=== PATIENT | male | born 1965 | race Caucasian/White ===

== ENCOUNTER 2017-10-01 09:05 | Inpatient (IN) | payer OTHER ==
[~2017-10-01] VITALS: Ht 182.9 cm; Wt 101.6 kg
--- NOTE | 2017-10-01 09:53 | ED GI/GU/ABDOMINAL COMPLAINT ---
History of Present Illness General Chief Complaint: Abdominal Pain/Flank Pain Stated Complaint: LT FLANK PAIN Source: patient Exam Limitations: no limitations Vital Signs & Intake/Output Vital Signs & Intake/Output Vital Signs Date Time Temp Pulse Resp B/P B/P Pulse O2 O2 Flow FiO2 Mean Ox Delivery Rate 10/01 1312 97.8 78 18 131/86 97 Room Air 10/01 1009 97.0 96 18 130/79 98 Room Air 10/01 0935 Room Air 10/01 0911 97.2 125 16 155/108 98 Room Air Allergies Coded Allergies: NO KNOWN ALLERGIES (12/21/11) Reconcile Medications No Known Home Medications Triage Note: PT TO ED C/O LT FLANK PAIN SINCE YESTERDAY. WORSE WITH MOVEMENT AND PALPATION. DENIES ANY URINARY S/S. DENIES HX OF KIDNEY STONES. Triage Nurses Notes Reviewed? yes Onset: Abrupt Duration: hour(s):, constant, changing over time, continues in ED, getting worse Timing: single episode today Quality/Severity: sharpness, severe Location: left flank Radiation: no radiation Activities at Onset: rest HPI: Patient presents for evaluation of a severe constant left flank pain that began relatively abruptly Monday night/Monday morning. Patient denies any prior episodes of this nature. He likewise denies associated fever, cold symptoms, hematuria or dysuria. Pain worsens with lifting the left leg. Patient hasn't tried any medications for pain. Past History Travel History Traveled to [place] past 21 day No Medical History Any Pertinent Medical History? see below for history Surgical History Surgical History: non-contributory Psychosocial History What is your primary language [place]ian Tobacco Use: Current Daily Use Daily Tobacco Use Amount/Type: => 5 Cigarettes daily Family History Hx Contributory? No Review of Systems Review of Systems Constitutional: Reports: no symptoms. EENTM: Reports: no symptoms. Respiratory: Reports: no symptoms. Cardiovascular: Reports: no symptoms. GI: Reports: no symptoms. Genitourinary: Reports: no symptoms. Musculoskeletal: Reports: see HPI. Skin: Reports: no symptoms. Neurological/Psychological: Reports: no symptoms. Hematologic/Endocrine: Reports: no symptoms. Immunologic/Allergic: Reports: no symptoms. All Other Systems: Reviewed and Negative Physical Exam Physical Exam Gastrointestinal: see below Comments: Gen.: Well-nourished, well-developed, no acute respiratory distress. Head: Normocephalic, atraumatic. Eyes: Normal inspection bilaterally Ears: Normal inspection bilaterally Nose: Normal inspection Throat/mouth : Moist mucosa Neck: Supple, full range of motion, no goiter Lungs: Quiet respirations Abdomen: Left upper quadrant abdominal tenderness with voluntary guarding but no rebound, normal bowel sounds, no palpable masses Back: Normal range of motion, no CVAT Extremities: Normal range of motion grossly, no cyanosis clubbing or edema of the upper extremities Neurologic: Cranial nerves grossly intact, speech is clear Skin: warm and dry Psychiatric: Calm, cooperative, no apparent delusions or hallucinations Core Measures ACS in differential dx? No Sepsis Present: No Sepsis Focused Exam Completed? No Progress Differential Diagnosis: renal colic, diverticulitis, UTI/pyelo, hernia, gas pain Plan of Care: Orders Procedure Date/time Status LIPASE 10/02 951 Complete COMPREHENSIVE METABOLIC PANEL 10/02 951 Complete CBC WITHOUT DIFFERENTIAL 10/02 951 Complete URINALYSIS 10/01 930 Active Laboratory Tests 10/01/17 0955: Anion Gap 15, Estimated GFR > 60, BUN/Creatinine Ratio 12.2, Glucose 113 H, Calcium 9.8, Total Bilirubin 1.7 H, AST 21, ALT 39, Alkaline Phosphatase 74, Total Protein 8.2, Albumin 4.8, Globulin 3.4, Albumin/Globulin Ratio 1.4, Lipase 233, CBC w Diff MAN DIFF ORDERED, RBC 5.84, MCV 87.4, MCH 29.4, MCHC 33.6, RDW 13.9, MPV 7.3 L, Gran % 75.3 H, Lymphocytes % 14.2 L, Monocytes % 9.5 H, Eosinophils % 0.5, Basophils % 0.5, Absolute Granulocytes 16.1 H, Absolute Lymphocytes 3.0, Absolute Monocytes 2.0 H, Absolute Eosinophils 0.1, Absolute Basophils 0.1, Platelet Estimate VERIFIED BY SMEAR, Normocytic RBCs VERIFIED, Normochromic RBCs VERIFIED Initial ED EKG: none Comments: 10/01/2017 11:06:54 AM I have already updated Arya on his CAT scan results. At that point he was without complaint. I have just discussed his case with Chano Agee MD who will evaluate Arya in the emergency department shortly. 10/01/2017 12:36:57 PM Arya is resting comfortably and offers no complaint at this time. He has received his antibiotics. We are awaiting evaluation by Chano Agee MD. Departure Departure Disposition: STILL A PATIENT Condition: Stable Clinical Impression Primary Impression: Diverticulitis of colon with perforation Qualifiers: Diverticulitis bleeding: without bleeding Qualified Code: K57.20 - Diverticulitis of large intestine with perforation and abscess without bleeding Referrals: Patient Has No Primary Care Dr (PCP/Family) Departure Forms: Customer Survey General Discharge Information Prescriptions: Current Visit Scripts No Known Home Medications Admission Note Spoke With: Cyndie SENA,Chano Ramirez Documentation of Exam: Documentation of any treatments & extenuating circumstances including Concerns Regarding Discharge (functional status, medication knowledge or non-compliance, living conditions, etc.) that warrant an admission rather than observation: Patient presents with severe abdominal pain and emergency Department evaluation reveals perforated diverticulitis. This places this patient at high risk of peritonitis sepsis and mortality. I feel this patient is an extremely poor candidate for outpatient management. The severe abdominal pain and tenderness would prevent him from compliance with outpatient treatment and he would likely return in worse clinical condition. I feel this patient requires an aggressive management with IV antibiotics and close clinical monitoring to prevent worsening of his clinical condition. Serial abdominal examination should be performed and if patient's clinical condition deteriorates, surgical intervention should be considered. Given the seriousness of this patient's medical condition I feel he will require a multiple day hospitalization. Critical Care Note Critical Care Note Critical Care Time: 30-74 min
[2017-10-01 10:11] LABS: ABSOLUTE BASOPHIL COUNT 0.1 /CUMM (0.0-0.2); ABSOLUTE EOSINOPHIL COUNT 0.1 /CUMM (0.0-0.7); ABSOLUTE GRANULOCYTE CT 16.1 /CUMM (1.4-6.5); BASOPHIL % 0.5 % (0.0-2.0); EOSINOPHIL % 0.5 % (0-5); GRANULOCYTE % 75.3 % (42.2-75.2); MEAN CORPUSCULAR HGB 29.4 PG (27.0-31.0); MEAN CORPUSCULAR HGB CONC 33.6 G/DL (33.0-37.0); MEAN CORPUSCULAR VOLUME 87.4 FL (80.0-94.0); MEAN PLATELET VOLUME 7.3 FL (7.4-10.4); PLATELET COUNT 325 /CUMM (130-400); RBC DISTRIBUTION WIDTH 13.9 % (11.5-14.5); RED BLOOD CELL CT 5.84 /CUMM (4.70-6.10); WHITE BLOOD CELL COUNT 21.4 /CUMM (4.8-10.8)
--- NOTE | 2017-10-01 10:27 | CT SCAN REPORT ---
EXAMINATION: CT ABDOMEN AND PELVIS WITHOUT CONTRAST CLINICAL INFORMATION: Left-sided abdominal pain and tenderness. Presumptive diagnosis of left renal colic, diverticulitis. COMPARISON: None. TECHNIQUE: Multidetector volumetric imaging was performed from the superior aspect of the liver through the pubic symphysis. Sagittal and coronal reformatted images were obtained on the technologist workstation. DLP: 612.63 mGy-cm. FINDINGS: LUNG BASES: The visualized lung bases are unremarkable. LIVER, GALLBLADDER, AND BILIARY TREE: The liver is normal in size, shape, and attenuation. There are 6 small subcentimeter sized low-attenuation masses seen in the left lobe of the liver, measuring less than or equal to 0.9 cm in size. These are most consistent with tiny cysts. Right lobe of the liver is unremarkable on noncontrast study. No biliary ductal dilatation is present. The gallbladder is unremarkable with no evidence of radiopaque gallstones, gallbladder wall thickening, or obvious pericholecystic inflammatory changes. PANCREAS: Unremarkable on noncontrast imaging. SPLEEN: There are 2 accessory splenules seen along the anterior inferior margin of the spleen, measuring 0.5 cm (series 2, image 15) and 1.0 cm (series 2, image 18). The spleen itself is unremarkable. ADRENAL GLANDS: Unremarkable on noncontrast imaging. KIDNEYS AND URETERS: The kidneys are normal in size, shape, and attenuation. No hydronephrosis, hydroureter, or calculi seen. No perinephric stranding. BLADDER: Decompressed and suboptimally assessed, but grossly unremarkable. PELVIC VISCERA: Unremarkable. GASTROINTESTINAL TRACT: The small is unremarkable. Moderate sigmoid colonic diverticulosis is seen with mild diffuse wall thickening, consistent with chronic diverticulosis. There are additional diverticula seen involving the descending colon, which is also segmentally thickened, involving a length of approximately 9 cm. There is surrounding fat infiltration and edema and thickening of the lateral conal fascia. Findings are consistent with acute diverticulitis. There may be a small contained microperforation in the mid descending colon region (series 2, image 43). The remainder of the colon is decompressed and unremarkable. The appendix is unremarkable. ABDOMINAL WALL: There is a small fat-containing umbilical hernia. LYMPH NODES, VASCULAR: There are several subcentimeter sized para-aortic and aortocaval lymph nodes seen in the upper abdomen and several small subcentimeter sized lymph nodes are seen at the root of the small bowel mesentery, possibly reactive. No pelvic adenopathy is seen. OSSEOUS STRUCTURES: Diffuse mild to moderate degenerative disc disease and vertebral spondylosis seen throughout the thoracolumbar spine. Mild facet arthropathy is seen in the mid and lower lumbar spine. IMPRESSION: 1. Acute segmental mid to distal descending colonic diverticulitis is seen with prominent surrounding fat infiltration and edema and small focus of contained perforation. No evidence of abscess formation. Follow-up CT scan or barium enema post treatment is recommended to document resolution of findings. 2. Multiple small upper abdominal lymph nodes are seen, possibly reactive. 3. No evidence of nephrolithiasis or obstructive uropathy. 4. Several subcentimeter sized hepatic masses are seen, most likely representing small cysts. 5. Small fat-containing umbilical hernia.
--- NOTE | 2017-10-01 13:41 | Admission Core Measures ---
Acute Coronary Syndrome (CM) ACS Core Measures Acute Coronary Syndrome Diagnosis No Congestive Heart Failure (NEW) CHF Core Measures Congestive Heart Failure Diagnosis No Cerebrovascular Accident CVA Core Measures CVA/TIA Diagnosis No Venous Thromboembolism VTE Core Scooby (View Protocol) VTE Risk Factors Age>40 No Mechanical VTE Prophylaxis d/t N/A MechProphylax Ordered No VTE Pharm Prophylaxis d/t NA PharmProphylax ordered Problem List As ranked by this Provider includes Assessment & Plan 1. Diverticulitis of colon with perforation HOME MEDS Home Med List No Known Home Medications
[2017-10-01 15:37] VITALS: BP 122/80
--- NOTE | 2017-10-01 20:10 | History & Physical Pre-Op ---
General Information and HPI MD Statement: I have seen and personally examined JULISSA DIA and documented this H& P. The patient is a 52 year old M who presented with a patient stated chief complaint of []. History of Present Illness: CC: abdominal pain HPI: 52-year-old nondiabetic nonsmoker no prior abdominal surgeries no colonoscopy no family history of intestinal diseases and cancer wasn't doing any unusual straining was a flulike symptoms recent antibiotics recent unusual meals or prior episodes of similar, but 2 days ago started having some mid not lower left-sided abdominal pain was worse yesterday so he came to the emergency room today no associated fevers sweats nausea vomiting diarrhea chills dysuria or bleeding per rectum pain is constant relieved by analgesics, doesn't radiate not worse on movement, otherwise no changes in bowel habits weight or appetite I've reviewed the PFSH. No history of GERD, PUD, bleeding problems, heart disease or issues with anesthesia. Allergies/Medications Allergies: Coded Allergies: NO KNOWN ALLERGIES (12/21/11) Home Med list No Known Home Medications Past History Medical History Musculoskeletal: RIGHT SHOULDER SURGERY 2007 Isolation History: Standard Surgical History Pertinent Surgical History: non-contributory Past Family/Social History Psychosocial History Where Do You Live? Home Smoking Status: Former Smoker Review of Systems Review of Systems: Constitutional: No fever, sweats or weight loss ENMT: No sore throat Cardiovascular: No chest pain, palpitations or leg swelling Respiratory: No shortness of breath, cough, or sputum or dyspnea on exertion GI: No GERD or bleeding per rectum : No dysuria or hematuria Musculoskeletal: No new muscle weakness, bone or joint pain Skin / Breast: No jaundice, rashes or itching Psychiatric: No history of drug or alcohol abuse no depression or anxiety Hematologic / lymphatic system: No problems with excessive bleeding, bruising, or blood clots Exam & Diagnostic Data Last 24 Hrs of Vital Signs/I&O I reviewed Vital Signs Date Time Temp Pulse Resp B/P B/P Pulse O2 O2 Flow FiO2 Mean Ox Delivery Rate 10/01 1537 99.1 88 18 122/80 93 Room Air 10/01 1529 94 Room Air 10/01 1312 97.8 78 18 131/86 97 Room Air 10/01 1009 97.0 96 18 130/79 98 Room Air 10/01 0935 Room Air 10/01 0911 97.2 125 16 155/108 98 Room Air I reviewed Intake & Output 10/01 1600 10/01 0800 10/01 0000 Intake Total Output Total Balance Patient 225 lb Weight Physical Exam: Constitutional: pleasant, no acute distress, conversant Eyes: sclera anicteric ENMT: ears and nose atraumatic, moist mucous membranes, good dentition, no lip lesions Neck: Supple, trachea is midline, no cervical or supraclavicular adenopathy and no palpable thyromegaly Cardiovascular: S1, S2, no murmurs, no peripheral edema Respiratory: clear to auscultation with normal respiratory effort and no intercostal retractions GI: abdomen soft, tender left lateral abdomen not lower, nondistended, no palpable hepatosplenomegaly Extremities / lymphatics: symmetrically warm, free range of motion no peripheral edema, no cervical, supraclavicular, axillary, or inguinal adenopathy Musculoskeletal: Did not evaluate gait and station, no digital cyanosis, good muscle strength and tone no atrophy, motor grossly 5 out of 5 throughout Skin: no jaundice, no rashes warm, nondiaphoretic, no areas of erythema or induration Psychiatric: mood and affect are appropriate and alert and oriented to person place and time Last 24 Hrs of Labs/Asael: I reviewed Laboratory Tests 10/01/17 0955: Anion Gap 15, Estimated GFR > 60, BUN/Creatinine Ratio 12.2, Glucose 113 H, Calcium 9.8, Total Bilirubin 1.7 H, AST 21, ALT 39, Alkaline Phosphatase 74, Total Protein 8.2, Albumin 4.8, Globulin 3.4, Albumin/Globulin Ratio 1.4, Lipase 233, CBC w Diff MAN DIFF ORDERED, RBC 5.84, MCV 87.4, MCH 29.4, MCHC 33.6, RDW 13.9, MPV 7.3 L, Gran % 75.3 H, Lymphocytes % 14.2 L, Monocytes % 9.5 H, Eosinophils % 0.5, Basophils % 0.5, Absolute Granulocytes 16.1 H, Absolute Lymphocytes 3.0, Absolute Monocytes 2.0 H, Absolute Eosinophils 0.1, Absolute Basophils 0.1, Platelet Estimate VERIFIED BY SMEAR, Normocytic RBCs VERIFIED, Normochromic RBCs VERIFIED Assessment/Plan Assessment/Plan: I reviewed today's CT scan on PACS myself, no comparison his mid descending colon is inflamed to the small pocket of gas in the mesentery no free air no obvious free fluid or bowel obstruction Impression is left colon not sigmoid diverticulitis theoretically possible an occult malignancy can looks similar is being masked by acute inflammation and small walled off perforation I explained the spectrum of disease severity, ranging from home antibiotics to ICU peritonitis colostomy I would say he's on the lower half but he should be admitted for IV antibiotics bowel rest because he can progress I warned him not to strain at stools or otherwise if he develops tachycardia or fever then we'll have to reimage him because he may have peritonitis and required colostomy presently he is very stable, with focal symptoms, a little surprising given the degree of leukocytosis and inflammation on imaging.. As Ranked By This Provider Problem List: 1. Diverticulitis of colon with perforation
[2017-10-01 21:39] VITALS: BP 134/83
[2017-10-02 06:27] VITALS: BP 130/82
--- NOTE | 2017-10-02 07:45 | PN- General Surgery ---
See Addendum Subjective Subjective: Feeling better. Pain and tenderness significantly improved. No chills / sweats. Passing flatus but no bm. Voiding without difficulty. Objective Vital Signs and I&Os Vital Signs Date Time Temp Pulse Resp B/P B/P Pulse O2 O2 Flow FiO2 Mean Ox Delivery Rate 10/02 0627 98.0 88 20 130/82 94 10/01 2139 98.1 73 20 134/83 96 Room Air 10/01 1537 99.1 88 18 122/80 93 Room Air 10/01 1529 94 Room Air 10/01 1312 97.8 78 18 131/86 97 Room Air 10/01 1009 97.0 96 18 130/79 98 Room Air 10/01 0935 Room Air 10/01 0911 97.2 125 16 155/108 98 Room Air Intake & Output 10/02 0800 10/02 0000 10/01 1600 10/01 0800 10/01 0000 09/30 1600 Intake Total 1000 1000 Output Total 725 Balance 275 1000 Intake, IV 1000 1000 Output, Urine 725 Patient 225 lb Weight Physical Exam: General - alert & oriented x 3. comfortable. no acute distress. Lungs - clear bilaterally. no w/r/r. Cardiac - s1s2. reg. Abdomen - soft. improving left lower abdominal tenderness. Extremities - warm bilaterally. no c/c/e. calves soft and nontender b/l. Current Medications: Current Medications Sig/Carson Start time Last Medication Dose Route Stop Time Status Admin Acetaminophen 1,000 MG Q6P PRN 10/01 1345 AC 10/01 N/A 1 UNIT IV 1646 Ceftriaxone Sodium 1,000 MG Q24H 10/02 1100 AC IV Ceftriaxone Sodium 0 .STK-MED ONE 10/01 1046 DC .ROUTE Ceftriaxone Sodium 1,000 MG ONCE ONE 10/01 1045 DC 10/01 IV 10/01 1046 1051 Dextrose/Sodium 1,000 ML Q8H 10/01 1345 AC 10/02 Chloride IV 0603 Heparin Sodium 5,000 UNIT Q8 10/01 1400 AC 10/02 (Porcine) SC 0603 Ketorolac 0 .STK-MED ONE 10/01 1003 DC Tromethamine .ROUTE Ketorolac 30 MG ONCE ONE 10/01 1000 DC 10/01 Tromethamine IV 10/01 1001 1007 Metronidazole 500 MG Q8H 10/01 1900 AC 10/02 N/A 1 UNIT IV 0313 Metronidazole 500 MG ONCE ONE 10/01 1045 DC 10/01 N/A 1 UNIT IV 10/01 1144 1057 Morphine Sulfate 2 MG Q4P PRN 10/01 1345 AC IV Omeprazole 40 MG DAILY AC 10/02 0700 CAN PO Ondansetron HCl 4 MG Q8P PRN 10/01 1345 AC IV Ondansetron HCl 0 .STK-MED ONE 10/01 1003 DC .ROUTE Ondansetron HCl 4 MG ONCE ONE 10/01 1000 DC 10/01 IV 10/01 1001 1007 Pantoprazole Sodium 40 MG DAILY 10/01 1339 AC 10/01 IV 1616 Results Last 48 Hours of Labs: Laboratory Tests 10/02 10/01 0632 1955 Chemistry Sodium Pending Potassium Pending Chloride Pending Carbon Dioxide Pending Anion Gap Pending BUN Pending Creatinine Pending BUN/Creatinine Ratio Pending Hematology CBC w Diff Pending WBC Pending RBC Pending Hgb Pending Hct Pending MCV Pending MCH Pending MCHC Pending RDW Pending Plt Count Pending MPV Pending Urines Urine Color (YEL,AMB,STR) YEL Urine Clarity (CLEAR) CLEAR Urine pH (5.0 - 8.0) 6.0 Ur Specific Tower (1.001 - 1.035) 1.020 Urine Protein (NEG,<30 MG/DL) TRACE H Urine Ketones (NEG) 15 H Urine Nitrite (NEG) NEG Urine Bilirubin (NEG) NEG Urine Urobilinogen (0.1 - 1.0 EU/dl) 0.2 Ur Leukocyte Esterase (NEG) NEG Ur Microscopic SEDIMENT EXAMINED Urine WBC (0 - 2 /HPF) RARE Ur Epithelial Cells (NONE,FEW) RARE Urine Mucus (FEW,NONE) MOD H Urine Hemoglobin (NEG) NEG Urine Glucose (N MG/DL) NEG 10/01 0955 Chemistry Sodium (137 - 145 mmol/L) 140 Potassium (3.5 - 5.1 mmol/L) 4.7 Chloride (98 - 107 mmol/L) 100 Carbon Dioxide (22 - 30 mmol/L) 25 Anion Gap (5 - 16) 15 BUN (9 - 20 mg/dL) 11 Creatinine (0.7 - 1.2 mg/dL) 0.9 Estimated GFR (>60 ml/min) > 60 BUN/Creatinine Ratio (7 - 25 %) 12.2 Glucose (65 - 99 mg/dL) 113 H Calcium (8.4 - 10.2 mg/dL) 9.8 Total Bilirubin (0.2 - 1.3 mg/dL) 1.7 H AST (17 - 59 U/L) 21 ALT (21 - 72 U/L) 39 Alkaline Phosphatase (< 127 U/L) 74 Total Protein (6.3 - 8.2 g/dL) 8.2 Albumin (3.5 - 5.0 g/dL) 4.8 Globulin (1.9 - 4.2 gm/dL) 3.4 Albumin/Globulin Ratio (1.1 - 2.2 %) 1.4 Lipase (23 - 300 U/L) 233 Hematology CBC w Diff MAN DIFF ORDERED WBC (4.8 - 10.8 /CUMM) 21.4 H RBC (4.70 - 6.10 /CUMM) 5.84 Hgb (14.0 - 18.0 G/DL) 17.1 Hct (42 - 52 %) 51.0 MCV (80.0 - 94.0 FL) 87.4 MCH (27.0 - 31.0 PG) 29.4 MCHC (33.0 - 37.0 G/DL) 33.6 RDW (11.5 - 14.5 %) 13.9 Plt Count (130 - 400 /CUMM) 325 MPV (7.4 - 10.4 FL) 7.3 L Gran % (42.2 - 75.2 %) 75.3 H Lymphocytes % (20.5 - 51.1 %) 14.2 L Monocytes % (1.7 - 9.3 %) 9.5 H Eosinophils % (0 - 5 %) 0.5 Basophils % (0.0 - 2.0 %) 0.5 Absolute Granulocytes (1.4 - 6.5 /CUMM) 16.1 H Absolute Lymphocytes (1.2 - 3.4 /CUMM) 3.0 Absolute Monocytes (0.10 - 0.60 /CUMM) 2.0 H Absolute Eosinophils (0.0 - 0.7 /CUMM) 0.1 Absolute Basophils (0.0 - 0.2 /CUMM) 0.1 Platelet Estimate (ADEQUATE) VERIFIED BY SMEAR Normocytic RBCs VERIFIED Normochromic RBCs VERIFIED Assessment/Plan Assessment/Plan This 52 year old male admitted with acute sigmoid diverticulitis, 1st episode, improving clinically try clears today. decrease iv fluids continue iv rocephin / flagyl for acute diverticulitis f/u labs oob/ambulation hep sc - dvt ppx nutrition consult to review dietary modifications will d/w Core Measures Venous Thromboembolism VTE Risk Factors Age>40 No Mechanical VTE Prophylaxis d/t N/A MechProphylax Ordered No VTE Pharm Prophylaxis d/t NA PharmProphylax ordered
[2017-10-02 08:28] LABS: ABSOLUTE BASOPHIL COUNT 0.1 /CUMM (0.0-0.2); ABSOLUTE EOSINOPHIL COUNT 0.2 /CUMM (0.0-0.7); ABSOLUTE LYMPH COUNT 2.3 /CUMM (1.2-3.4)
[2017-10-02 09:11] LABS: ABSOLUTE GRANULOCYTE CT 9.4 /CUMM (1.4-6.5); BASOPHIL % 0.5 % (0.0-2.0); EOSINOPHIL % 1.3 % (0-5); GRANULOCYTE % 72.8 % (42.2-75.2); MEAN CORPUSCULAR HGB 29.3 PG (27.0-31.0); MEAN CORPUSCULAR HGB CONC 33.2 G/DL (33.0-37.0); MEAN CORPUSCULAR VOLUME 88.4 FL (80.0-94.0); MEAN PLATELET VOLUME 7.8 FL (7.4-10.4); PLATELET COUNT 266 /CUMM (130-400); RBC DISTRIBUTION WIDTH 13.7 % (11.5-14.5); RED BLOOD CELL CT 5.17 /CUMM (4.70-6.10); WHITE BLOOD CELL COUNT 12.9 /CUMM (4.8-10.8)
[2017-10-02 09:19] LABS: HEMATOCRIT 45.7 % (42-52)
[2017-10-02 14:59] VITALS: BP 143/92
[2017-10-02 22:07] VITALS: BP 131/61
[2017-10-03 06:42] VITALS: BP 120/80
--- NOTE | 2017-10-03 08:41 | PN- General Surgery ---
Subjective Subjective: Patient doing well this am. Tolerating fulls without difficulty. Pain nearly resolved. Ambulating and voiding without issue. Full return of bowel function. No other complaints. Objective Vital Signs and I&Os Vital Signs Date Time Temp Pulse Resp B/P B/P Pulse O2 O2 Flow FiO2 Mean Ox Delivery Rate 10/03 0642 98.0 69 20 120/80 95 Room Air 10/02 2207 98.0 86 16 131/61 95 Room Air 10/02 1459 98.0 75 20 143/92 97 Room Air Intake & Output 10/03 1600 10/03 0800 10/03 0000 10/02 1600 10/02 0800 10/02 0000 Intake Total 490 427 8801 1000 1000 Output Total 725 Balance 015 769 4535 275 1000 Intake, IV 700 796 963 6754 1000 Intake, Oral 120 240 500 Number 2 Bowel Movements Output, Urine 725 Patient 224 lb Weight Physical Exam: General: A, A, NAD Abdomen: S, minimal distention, NT Extremities: No clubbing, cyanosis or edema Current Medications: Current Medications Sig/[place] Start time Last Medication Dose Route Stop Time Status Admin Acetaminophen 1,000 MG Q6P PRN 10/01 1345 AC 10/01 N/A 1 UNIT IV 1646 Ceftriaxone Sodium 1,000 MG Q24H 10/02 1100 AC 10/02 IV 1137 Dextrose/Sodium 1,000 ML Q8H 10/01 1345 AC 10/02 Chloride IV 2001 Heparin Sodium 5,000 UNIT Q8 10/01 1400 AC 10/02 (Porcine) SC 1427 Metronidazole 500 MG Q8H 10/01 1900 AC 10/03 N/A 1 UNIT IV 0311 Morphine Sulfate 2 MG Q4P PRN 10/01 1345 AC IV Ondansetron HCl 4 MG Q8P PRN 10/01 1345 AC IV Pantoprazole Sodium 40 MG DAILY 10/01 1339 AC 10/02 IV 0909 Results Last 48 Hours of Labs: Laboratory Tests 10/02 10/01 0632 1955 Chemistry Sodium (137 - 145 mmol/L) 140 Potassium (3.5 - 5.1 mmol/L) 4.3 Chloride (98 - 107 mmol/L) 104 Carbon Dioxide (22 - 30 mmol/L) 24 Anion Gap (5 - 16) 12 BUN (9 - 20 mg/dL) 8 L Creatinine (0.7 - 1.2 mg/dL) 0.8 Estimated GFR (>60 ml/min) > 60 BUN/Creatinine Ratio (7 - 25 %) 10.0 Hematology CBC w Diff NO MAN DIFF REQ WBC (4.8 - 10.8 /CUMM) 12.9 H RBC (4.70 - 6.10 /CUMM) 5.17 Hgb (14.0 - 18.0 G/DL) 15.1 Hct (42 - 52 %) 45.7 MCV (80.0 - 94.0 FL) 88.4 MCH (27.0 - 31.0 PG) 29.3 MCHC (33.0 - 37.0 G/DL) 33.2 RDW (11.5 - 14.5 %) 13.7 Plt Count (130 - 400 /CUMM) 266 MPV (7.4 - 10.4 FL) 7.8 Gran % (42.2 - 75.2 %) 72.8 Lymphocytes % (20.5 - 51.1 %) 17.8 L Monocytes % (1.7 - 9.3 %) 7.6 Eosinophils % (0 - 5 %) 1.3 Basophils % (0.0 - 2.0 %) 0.5 Absolute Granulocytes (1.4 - 6.5 /CUMM) 9.4 H Absolute Lymphocytes (1.2 - 3.4 /CUMM) 2.3 Absolute Monocytes (0.10 - 0.60 /CUMM) 1.0 H Absolute Eosinophils (0.0 - 0.7 /CUMM) 0.2 Absolute Basophils (0.0 - 0.2 /CUMM) 0.1 Urines Urine Color (YEL,AMB,STR) YEL Urine Clarity (CLEAR) CLEAR Urine pH (5.0 - 8.0) 6.0 Ur Specific [place] (1.001 - 1.035) 1.020 Urine Protein (NEG,<30 MG/DL) TRACE H Urine Ketones (NEG) 15 H Urine Nitrite (NEG) NEG Urine Bilirubin (NEG) NEG Urine Urobilinogen (0.1 - 1.0 EU/dl) 0.2 Ur Leukocyte Esterase (NEG) NEG Ur Microscopic SEDIMENT EXAMINED Urine WBC (0 - 2 /HPF) RARE Ur Epithelial Cells (NONE,FEW) RARE Urine Mucus (FEW,NONE) MOD H Urine Hemoglobin (NEG) NEG Urine Glucose (N MG/DL) NEG 10/01 0955 Chemistry Sodium (137 - 145 mmol/L) 140 Potassium (3.5 - 5.1 mmol/L) 4.7 Chloride (98 - 107 mmol/L) 100 Carbon Dioxide (22 - 30 mmol/L) 25 Anion Gap (5 - 16) 15 BUN (9 - 20 mg/dL) 11 Creatinine (0.7 - 1.2 mg/dL) 0.9 Estimated GFR (>60 ml/min) > 60 BUN/Creatinine Ratio (7 - 25 %) 12.2 Glucose (65 - 99 mg/dL) 113 H Calcium (8.4 - 10.2 mg/dL) 9.8 Total Bilirubin (0.2 - 1.3 mg/dL) 1.7 H AST (17 - 59 U/L) 21 ALT (21 - 72 U/L) 39 Alkaline Phosphatase (< 127 U/L) 74 Total Protein (6.3 - 8.2 g/dL) 8.2 Albumin (3.5 - 5.0 g/dL) 4.8 Globulin (1.9 - 4.2 gm/dL) 3.4 Albumin/Globulin Ratio (1.1 - 2.2 %) 1.4 Lipase (23 - 300 U/L) 233 Hematology CBC w Diff MAN DIFF ORDERED WBC (4.8 - 10.8 /CUMM) 21.4 H RBC (4.70 - 6.10 /CUMM) 5.84 Hgb (14.0 - 18.0 G/DL) 17.1 Hct (42 - 52 %) 51.0 MCV (80.0 - 94.0 FL) 87.4 MCH (27.0 - 31.0 PG) 29.4 MCHC (33.0 - 37.0 G/DL) 33.6 RDW (11.5 - 14.5 %) 13.9 Plt Count (130 - 400 /CUMM) 325 MPV (7.4 - 10.4 FL) 7.3 L Gran % (42.2 - 75.2 %) 75.3 H Lymphocytes % (20.5 - 51.1 %) 14.2 L Monocytes % (1.7 - 9.3 %) 9.5 H Eosinophils % (0 - 5 %) 0.5 Basophils % (0.0 - 2.0 %) 0.5 Absolute Granulocytes (1.4 - 6.5 /CUMM) 16.1 H Absolute Lymphocytes (1.2 - 3.4 /CUMM) 3.0 Absolute Monocytes (0.10 - 0.60 /CUMM) 2.0 H Absolute Eosinophils (0.0 - 0.7 /CUMM) 0.1 Absolute Basophils (0.0 - 0.2 /CUMM) 0.1 Platelet Estimate (ADEQUATE) VERIFIED BY SMEAR Normocytic RBCs VERIFIED Normochromic RBCs VERIFIED Assessment/Plan Assessment/Plan This is a 52 year old male admitted with acute sigmoid diverticulitis HOD #2, 1st episode, improving clinically advance to low fiber diet and HL IVF continue iv rocephin / flagyl for acute diverticulitis, home on completion course of cipro/flagyl for a total of 12 days of therapy oob/ambulation hep sc - dvt ppx nutrition consult completed case d/w home w/o services today Problem List: 1. Diverticulitis of colon with perforation Core Measures Venous Thromboembolism VTE Risk Factors Age>40 No Mechanical VTE Prophylaxis d/t N/A MechProphylax Ordered No VTE Pharm Prophylaxis d/t NA PharmProphylax ordered
--- NOTE | 2017-10-03 09:36 | Patient Discharge Instructions ---
Discharge Instructions General Discharge Information You were seen/treated for: Diverticulitis You had these procedures: None Watch for these problems: Increased abdominal pain, nausea, vomiting, excessive diarrhea, or no bowel movements Diet Continue normal diet: Yes Recommended Diet: Low Residue Activity Full Activity/No Limits: Yes Activity Self Limited: Yes Acute Coronary Syndrome Inclusion Criteria At DC or during hospital stay patient has or had the following: ACS DIAGNOSIS No Discharge Core Measures Meds if any: Prescribed or Continued at Discharge Meds if any: NOT Prescribed or Continued at Discharge Congestive Heart Failure Inclusion Criteria At DC or during hospital stay patient has or had the following: CHF DIAGNOSIS No Discharge Core Measures Meds if any: Prescribed or Continued at Discharge Meds if any: NOT Prescribed or Continued at Discharge Cerebrovascular accident Inclusion Criteria At DC or during hospital stay patient has or had the following: CVA/TIA Diagnosis No Discharge Core Measures Meds if any: Prescribed or Continued at Discharge Meds if any: NOT Prescribed or Continued at Discharge Venous thromboembolism Inclusion Criteria VTE Diagnosis No VTE Type NONE VTE Confirmed by (Test) NONE Discharge Core Measures - Per Current guidelines, there needs to be overlap - treatment for the first 5 days of Warfarin therapy. - If discharged on Warfarin prior to 5 days of - overlap therapy, the patient will need to be - assessed for post discharge needs including - *Post discharge parental anticoagulation - *Warfarin and/or parental anticoagulation education - *Follow up date to check INR post discharge At least 5 days overlap therapy as Inpatient No Meds if any: Prescribed or Continued at Discharge Note: Overlap Therapy is Warfarin and Anticoagulant Meds if any: NOT Prescribed or Continued at Discharge
[2017-10-03] MEDS ORDERED: FLAGYL500 MG PO (09:40)
[2017-10-03] MEDS ORDERED: CIPRO500 M1 PO (09:40)
--- NOTE | 2017-10-03 10:00 | Surgical Discharge Summary ---
Visit Information Visit Dates Admission Date: 10/01/17 Discharge Date: 10/03/17 History of Present Illness Chief Complaint: Abdominal pain Medical History Musculoskeletal: RIGHT SHOULDER SURGERY 2007 Isolation History: Standard Surgical History Pertinent Surgical History: non-contributory Psychosocial History Where Do You Live? Home Who Do You Live With? Sister What is Your Primary Language? Faroese Review of Systems: as per H&P Physical Exam: General: A, A, NAD Abdomen: S, minimal distention, NT Extremities: No clubbing, cyanosis or edema Hospital Course Course Attending Physician: Cyndie SENA,Chano Ramirez Primary Care Physician: Patient Has No Primary Care Dr Hospital Course: This is a 52-year-old nondiabetic nonsmoker no prior abdominal surgeries no colonoscopy no family history of intestinal diseases and cancer wasn't doing any unusual straining was a flulike symptoms recent antibiotics recent unusual meals or prior episodes of similar, but 2 days ago started having some mid not lower left-sided abdominal pain was worse yesterday so he came to the emergency room today no associated fevers sweats nausea vomiting diarrhea chills dysuria or bleeding per rectum pain is constant relieved by analgesics, doesn't radiate not worse on movement, otherwise no changes in bowel habits weight or appetite I've reviewed the [facility]. No history of GERD, PUD, bleeding problems, heart disease or issues with anesthesia. Work up was obtained and revealed leukocytosis and left colon diverticulitis. He was admitted to the surgical service under the care of Dr. Agee. He was made NPO, placed on IVF and IV abx in the form of Rocephin and Flagyl. Diet was advanced in a stepwise fashion as pain resolved. Pain was nearly resolved by HOD #2 and he was deemed appropriate for discharge. At this time he was ambulating, voiding, tolerating a low fiber diet, and was not requiring any analgesia. Plan is for the patient to be discharged on a completion course of antibiotics and see Dr. Agee within 1-2 weeks as an outpatient. Full details of his hospital course and diagnostic studies can be found in his electronic chart. Complications: None Allergies: Coded Allergies: NO KNOWN ALLERGIES (12/21/11) Significant Procedures: None Disposition Summary Disposition Principal Diagnosis: Perforated Diverticulitis Additional Diagnosis: None Discharge Disposition: home or self care Discharge Instructions General Discharge Information Code Status: Full Code Patient's Diet: Low fiber Patient's Activity: as tolerated Follow-Up Instructions/Appts: see electronic discharge instructions Medications at Discharge Discharge Medications: Start taking the following new medications: Metronidazole (Flagyl) 500 MG TABLET 1 Tablet ORAL THREE TIMES DAILY Qty = 36 No Refills Ciprofloxacin HCl (Cipro) 500 MG TABLET 1 Tablet ORAL TWICE DAILY Qty = 24 No Refills Copies To: Cyndie SENA,Chano Ramirez
== END 2017-10-03 14:10 | DRG 392 ==
LOC: ERH 09:05 → ERHI 13:28 → 2NB 13:28 → ENRESERV 14:14 → 2NB 14:38 → ENPENDDIS 10-03 09:45 → 2NB 10-03 14:10
PROVIDERS: Emergency Medicine; Nurse Practitioner
DX: K57.20 Diverticulitis of large intestine with perforation and abscess without bleeding (principal)
CPT/HCPCS: 2NBP; 36592; 74176; 81001; 82436; 96374; 96375; 99291; J0131; J0696; J1644; J1885; J2405; J7042